=== PATIENT | female | born 1965 | race Two or more races ===

== ENCOUNTER 2019-04-05 10:43 | Emergency (ER) | payer OTHER ==
[~2019-04-05] VITALS: Ht 157.5 cm; Wt 81.6 kg
[2019-04-05 11:14] VITALS: BP 116/84
[2019-04-05] MEDS: IBUPROFEN 800 MG TAB PO ONE (13:44)
== END 2019-04-05 14:50 | disposition home or self-care (01) ==
LOC: ER 10:43 → EDBD 10:43 → ER 14:49
DX: S16.1XXA Strain of muscle, fascia and tendon at neck level, initial encounter (principal); V43.62XA Car passenger injured in collision with other type car in traffic accident, initial encounter; Y93.89 Activity, other specified; Y92.410 Unspecified street and highway as the place of occurrence of the external cause; Y99.8 Other external cause status
CPT/HCPCS: 72040